=== PATIENT | male | born 1965 | race Caucasian/White ===

== ENCOUNTER 2022-01-08 00:54 | Emergency (ER) | payer OTHER ==
--- OUTSIDE RECORDS SUMMARY | 2022-01-08 00:58 | XMS REPORT | Continuity of Care Document ---
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 PHONE #: [phone] EXAM DATE: 09/14/2020 STATUS: REG ER FAX #: [phone] RAD #: D/C DT PAGE 1 Signed Report Patient Name: SOLANGE GOLDEN Unit No: [id number] EXAMS: CPT CODE: [id number] CT HEAD/BRAIN W/O CONT [id number] <Continued> Orig Print D/T: S: 09/14/2020 (010) REN Camargo NAME: [address] PHYS: [place] [address] : 1965 AGE: 55 SEX: M LOC: B.ERS PHONE #: [phone] EXAM DATE: 09/14/2020 STATUS: REG ER FAX #: [phone] RAD #: D/C DT PAGE 2 Signed ReportBASIC METABOLIC [id number] 00:41:00 Test Item Value Reference Range Interpretation Comments SODIUM (test code = 139.0 mmol/L 133-144 N NA) POTASSIUM (test 3.5 mmol/L 3.5-5.1 N code = K) CHLORIDE (test code 106 mmol/L 95-105 H = CL) CARBON DIOXIDE 26 mmol/L 21-32 N (test code = CO2) ANION GAP (test 7.0 GAP calc 4.0-15.0 N code = GAP) GLUCOSE (test code 150 MG/DL 70-110 H = GLU) BLOOD UREA NITROGEN 13 MG/DL 7-18 N (test code = BUN) CREATININE (test 0.83 MG/DL 0.55-1.30 N Results may be code = CREAT) depressed if p atient is takingN-Acetylc ystei ne (NAC) and Metamizole (Dipyrone). CALCIUM (test code 9.1 MG/DL 8.5-10.1 N = CA) INDEX HEMOLYSIS 1 NORMAL <10 MG See_Comment [Automat ed message] (test code = Index/DL The system [employer]EM[employer]) generated this result transmit meri reference range : 1 NORMAL. The reference range was not used to interpret this result as normal/abnormal . INDEX ICTERIC (test 1 NORMAL <2 MG See_Comment [Auto mated message] code = ICTINDEX) Index/DL The system which generated this result transmit meri reference range : 1 NORMAL. The reference range was not used to interpret this result as normal/abnormal . INDEX LIPEMIA (test 1 NORMAL <50 MG See_Comment [Aut omated message] code = LIPINDEX) Index/DL The system which generated this result transmit meri reference range : 1 NORMAL. The reference range was not used to interpret this result as normal/abnormal . [id number] 00:41:00 Test Item Value Reference Range Interpretation Comments TROPONIN-I < 0.015 NG/ML 0.000-0.045 N INTERPRET WITH CAUTION, THIS (test code = VALUE EXCEEDS T HE LOWER TROPI) LIMITOF LINEARI TY VERIFICATION ES TABLISHED BY THE LABORATORY. An elevated troponin value alone is not sufficient todi agnose a myocardial infa rction. Rather, the patient'sclinic al presentation (h istory, physical exam) and ECGshould be used in conj unction with troponin in the diagnostic evaluation of s uspected myocardial infa rction. Aserial samplin g protocol is recommended to facilitate theidentificati on of temporal change s in troponin levelscharacter istic of AL. [id number] 00:41:00 Test Item Value Reference Range Interpretation Comments ALCOHOL (test code = 177 MG/DL 0-10 H MEDICAL ALCOHOL ALC) RESULTS. SITE W PREPPED WITH BE TADINE. <10 MG/DL ARE CONSIDERED NEGA TIVE. >400 MG/DL MAY BE FATAL.RESULTS F OR MEDICAL USE ONL Y. NOT TO BE USED FOR FORENSIC PURPOSES. PT AND [id number] 00:38:00 Test Item Value Reference Interpretation Comments Range PT PATIENT (test 11.6 SECONDS 9.4-12.5 N code = PTP) INTERNATIONAL 1.02 INR 0.88-1.13 N NORMAL RATIO (test Unit --------- code = INR) ---------Therap eutic range for INR i s dependent upon the situation.2.0-3 .0 Prophylaxis / v enous thromboembolism , Treatment of DV T, Acute myocardial infa rction stroke preventi on, Systemic emboli sm prevention in fibrillation3.0 -4.5 AMI recurrence prev ention, Systemic emboli sm prevention in p rosthetic heart 3.0-5.4 A AL mortality reduc tion THROMBOPLASTIN TIME 24.3 SECONDS 24-37.7 N THERAPEU TIC RANGE FOR PARTIAL (test code UNFRACTIO NATED HEPARIN = = PTT) 50.5-83.6 SEC T his test is not recommen ded to monitor low molecularweight heparin or danaparoid. Order LMWH test COLLECTION THROUGH LINES THAT HAVE BEEN PREVIOUSLY FLUS HEDWITH HEPARIN SHOULD BE AVOIDED DUE TO POSSIBLE HEPARINCONTAMIN ATION BASIC METABOLIC [id number] 00:36:00 Test Item Value Reference Range Interpretation Comments SODIUM (test code = 139.0 mmol/L 133-144 N NA) POTASSIUM (test 3.5 mmol/L 3.5-5.1 N code = K) CHLORIDE (test code 106 mmol/L 95-105 H = CL) CARBON DIOXIDE 26 mmol/L 21-32 N (test code = CO2) ANION GAP (test 7.0 GAP calc 4.0-15.0 N code = GAP) GLUCOSE (test code 150 MG/DL 70-110 H = GLU) BLOOD UREA NITROGEN 13 MG/DL 7-18 N (test code = BUN) CREATININE (test 0.83 MG/DL 0.55-1.30 N Results may be code = CREAT) depressed if p atient is takingN-Acetylc ystei ne (NAC) and Metamizole (Dipyrone). CALCIUM (test code 9.1 MG/DL 8.5-10.1 N = CA) INDEX HEMOLYSIS 1 NORMAL <10 MG See_Comment [Automat ed message] (test code = Index/DL The system [employer]) generated this result transmit meri reference range : 1 NORMAL. The reference range was not used to interpret this result as normal/abnormal . INDEX ICTERIC (test 1 NORMAL <2 MG See_Comment [Auto mated message] code = ICTINDEX) Index/DL The system which generated this result transmit meri reference range : 1 NORMAL. The reference range was not used to interpret this result as normal/abnormal . INDEX LIPEMIA (test 1 NORMAL <50 MG See_Comment [Aut omated message] code = LIPINDEX) Index/DL The system which generated this result transmit meri reference range : 1 NORMAL. The reference range was not used to interpret this result as normal/abnormal . [id number] 00:36:00 Test Item Value Reference Range Interpretation Comments TROPONIN-I (test code = TROPI) NG/ML 0.000-0.045 [id number] 00:36:00 Test Item Value Reference Range Interpretation Comments ALCOHOL (test code = 177 MG/DL 0-10 H MEDICAL ALCOHOL ALC) RESULTS. SITE W PREPPED WITH ROCHELLE BAJWA. <10 MG/DL ARE CONSIDERED NEGA TIVE. >400 MG/DL MAY BE FATAL.RESULTS F OR MEDICAL USE ONL Y. NOT TO BE USED FOR FORENSIC PURPOSES. URINALYSIS [id number] 00:33:00 Test Item Value Reference Range Interpretation Comments UA COLOR (test code COLORLESS YELLOW = COLU) DESCRIPT UA APPEARANCE (test CLEAR DESCRIPT CLEAR code = APPU) UA GLUCOSE DIPSTICK 1,000 mg/dL See_Comment [Automa meri (test code = DGLUU) message] The system which generated this result transmit meri reference range : 0 (NORMAL). The reference range was not used to interpret this result as normal/abnormal . UA BILIRUBIN NEGATIVE (0.0) See_Comment [Automated DIPSTICK (test code mg/dL message] The = BILU) system which generated this result transmit meri reference range : (NEG) 0. The reference range was not used to interpret this result as normal/abnormal . UA KETONE DIPSTICK NEGATIVE (0) See_Comment [Automat ed (test code = KETU) mg/dL message] The system which generated this result transmit meri reference range : (NEG) 0. The reference range was not used to interpret this result as normal/abnormal . UA SPECIFIC GRAVITY 1.001 SG 1.001-1.035 (test code = SGU) UA BLOOD DIPSTICK NEGATIVE (0.00) See_Comment [Autom ated (test code = SORIN) mg/dL message] T system which generated this result transmit meri reference range : 0 (NEG). The reference range was not used to interpret this result as normal/abnormal . UA PH DIPSTICK (test 7.0 pH UNITS 4.6-8.0 code = ASHLEY) UA PROTEIN DIPSTICK NEGATIVE (0) See_Comment [Automa meri (test code = PROU) mg/dL message] The system which generated this result transmit meri reference range : <30 (1+). The reference range was not used to interpret this result as normal/abnormal . UA UROBILINIOGEN NORMAL (0) mg/Dl See_Comment [Autom ated DIPSTICK (test code message] The = URO) system which generated this result transmit meri reference range : <2.0 (1+). The reference range was not used to interpret this result as normal/abnormal . UA NITRITE DIPSTICK NEGATIVE (0) NEG (test code = EDGAR) SCREEN UA LEUKOCYTE NEGATIVE (0) See_Comment [Automated ESTERASE DIPSTICK Leuk/mcL message] T he (test code = LEUU) system wh ich generated this result transmit meri reference range : (NEG) 0. The reference range was not used to interpret this result as normal/abnormal . UA WBC (test code = NONE #WBC/HPF 0-3 WBCU) UA RBC (test code = 0-3 #RBC/HPF 0-3 RBCU) CBC W/AUTO [id number] 00:27:00 Test Item Value Reference Range Interpretation Comments WHITE BLOOD CELL (test code = 6.3 K/mm3 4.1-12.1 N WBC) RED BLOOD CELL (test code = RBC) 4.91 M/mm3 3.8-5.5 N HEMOGLOBIN (test code = HGB) 15.0 G/DL 10.6-15.8 N HEMATOCRIT (test code = HCT) 46.0 % 31.8-47.4 N MEAN CELL VOLUME (test code = 93.7 fL 80.1-101.1 N MCV) MEAN CELL HGB (test code = MCH) 30.5 pg 25.3-35.3 N MEAN CELL HGB CONCETRATION (test 32.6 G/DL 32.7-35.1 L code = MCHC) RED CELL DISTRIBUTION WIDTH 12.1 % 12.2-16.4 L (test code = RDW) RED CELL DISTRIBUTION WIDTH 42.1 fL 35.1-43.9 N (test code = RDW-SD) PLATELET COUNT (test code = PLT) 334 K/mm3 155-337 N MEAN PLATELET VOLUME (test code 9.5 fL 7.6-10.4 N = MPV) GRANULOCYTE % (test code = GR%) 59.5 % 37.8-82.6 N IMMATURE GRANULOCYTE % (test 0.3 % 0.0-2.0 N code = IG%) LYMPHOCYTE % (test code = LY%) 29.1 % 14.1-45.4 N MONOCYTE % (test code = MO%) 6.7 % 2.5-11.7 N EOSINOPHIL % (test code = EO%) 3.8 % 0.0-6.2 N BASOPHIL % (test code = BA%) 0.6 % 0.0-2.6 N NUCLEATED RBC % (test code = 0.0 /100WBC% 0.0-1.0 N NRBC%) GRANULOCYTE # (test code = GR#) 3.73 k/mm3 2.0-13.7 N IMMATURE GRANULOCYTE # (test 0.02 K/mm3 0.00-0.03 N code = IG#) LYMPHOCYTE # (test code = LY#) 1.83 K/mm3 0.6-3.8 N MONOCYTE # (test code = MO#) 0.42 K/mm3 0.11-0.59 N EOSINOPHIL # (test code = EO#) 0.24 K/mm3 0.0-0.4 N BASOPHIL # (test code = BA#) 0.04 K/mm3 0.0-0.1 N NUCLEATED RBC # (test code = 0.00 K/mm3 0.00-0.05 N NRBC#)
[2022-01-08 02:44] LABS: Hematocrit 45.1 % (39.6-49.0); Lymphocytes % 22.7 % (15.3-44.8); MCV 90.8 fL (80-100); MPV 7.6 fL (7.6-11.3); RBC Red Blood Cell Count 4.97 M/uL (4.33-5.43)
[2022-01-08 02:56] LABS: Protime INR 0.99
[2022-01-08 03:10] LABS: ALT/SGPT 31 U/L (12-78); Albumin 3.6 g/dL (3.4-5.0); Alkaline Phosphatase 73 U/L (45-117); BUN Blood Urea Nitrogen 10 mg/dL (7-18); Bicarbonate 28 mmol/L (21-32); Bilirubin Total 0.4 mg/dL (0.2-1.0); Glomerular Filtration Rate 78 ml/min (=/>90); Glucose Level 257 mg/dL (74-106); Phosphorus 2.7 mg/dL (2.5-4.9); Protein, Total 7.3 g/dL (6.4-8.2); Sodium Level 139 mmol/L (136-145)
[2022-01-08 03:11] LABS: AST/SGOT 23 U/L (15-37); Bilirubin Direct < 0.1 mg/dL (0-0.2); Magnesium 1.9 mg/dL (1.8-2.4); Potassium 4.3 mmol/L (3.5-5.1)
[2022-01-08 03:27] LABS: NT PRO-BNP 9 pg/mL (<125); Troponin High Sensitivity 5.6 pg/mL (<58.9)
[2022-01-08 03:51] LABS: Urine Blood Negative (Negative); Urine Glucose 2+ (Negative); Urine Protein 1+ (Negative); Urine Specific Gravity >=1.030 (1.005-1.030)
[2022-01-08] MEDS ORDERED: NA CHLORIDE 0.9% 1,000 ML ONE (04:06)
--- NOTE | 2022-01-08 04:52 | EDPHYS ---
Physician Documentation [facility] Name: Mitul Espino Jr Age: 57 yrs Sex: Male : 1965 Arrival Date: 01/08/2022 Time: 00:56 Bed 26 Private MD: ED Physician Pierce Grider HPI: 01/08 02:04 This 57 yrs old Male presents to ER via Ambulatory with complaints of Shortness Of mh7 Breath, Numbness Of Hand, Low Blood Sugar. 02:04 The patient or guardian reports hypoglycemia, that was potentially precipitated by no mh7 particular event, with the patient's symptoms witnessed by family. Onset: The symptoms/episode began/occurred yesterday. Associated signs and symptoms: Pertinent positives: SOB, numbness/tingling , Pertinent negatives: anorexia, constipation, decreased urine output, diaphoresis, diarrhea, dry skin, hair loss, ketones in urine, nausea, polydipsia, polyphagia, polyuria, seizure activity, skin flushing, urinary incontinence, vomiting. Current symptoms: In the emergency department the patient's symptoms have improved, moderately. Historical: - Allergies: 01:23 No Known Allergies; bb - PMHx: 01:23 Diabetes mellitus; Hypothyroidism; bb - Immunization history:: Client reports receiving the Yvan \\T\\ Yvan single-dose vaccine. - Social history:: Smoking status: Patient reports the use of cigarette tobacco products, cigars. ROS: 02:04 Constitutional: Negative for fever, chills, and weight loss, Eyes: Negative for injury, mh7 pain, redness, and discharge, ENT: Negative for injury, pain, and discharge, Neck: Negative for injury, pain, and swelling, Cardiovascular: Negative for chest pain, palpitations, and edema, Abdomen/GI: Negative for abdominal pain, nausea, vomiting, diarrhea, and constipation, Back: Negative for injury and pain, : Negative for injury, bleeding, discharge, and swelling, MS/Extremity: Negative for injury and deformity, Skin: Negative for injury, rash, and discoloration, Psych: Negative for depression, anxiety, suicide ideation, homicidal ideation, and hallucinations, Allergy/Immunology: Negative for hives, rash, and allergies, Endocrine: Negative for neck swelling, polydipsia, polyuria, polyphagia, and marked weight changes, Hematologic/Lymphatic: Negative for swollen nodes, abnormal bleeding, and unusual bruising. Exam: 02:04 Constitutional: This is a well developed, well nourished patient who is awake, alert, mh7 and in no acute distress. Head/Face: Normocephalic, atraumatic. Eyes: Pupils equal round and reactive to light, extra-ocular motions intact. Lids and lashes normal. Conjunctiva and sclera are non-icteric and not injected. Cornea within normal limits. Periorbital areas with no swelling, redness, or edema. Neck: Trachea midline, no thyromegaly or masses palpated, and no cervical lymphadenopathy. Supple, full range of motion without nuchal rigidity, or vertebral point tenderness. No Meningismus. Chest/axilla: Normal chest wall appearance and motion. Nontender with no deformity. No lesions are appreciated. Cardiovascular: Regular rate and rhythm with a normal S1 and S2. No gallops, murmurs, or rubs. Normal PMI, no JVD. No pulse deficits. Respiratory: Lungs have equal breath sounds bilaterally, clear to auscultation and percussion. No rales, rhonchi or wheezes noted. No increased work of breathing, no retractions or nasal flaring. Abdomen/GI: Soft, non-tender, with normal bowel sounds. No distension or tympany. No guarding or rebound. No evidence of tenderness throughout. Back: No spinal tenderness. No costovertebral tenderness. Full range of motion. Skin: Warm, dry with normal turgor. Normal color with no rashes, no lesions, and no evidence of cellulitis. MS/ Extremity: Pulses equal, no cyanosis. Neurovascular intact. Full, normal range of motion. Neuro: Awake and alert, GCS 15, oriented to person, place, time, and situation. Cranial nerves II-XII grossly intact. Motor strength 5/5 in all extremities. Sensory grossly intact. Cerebellar exam normal. Normal gait. Psych: Awake, alert, with orientation to person, place and time. Behavior, mood, and affect are within normal limits. Vital Signs: 01:21 BP 130 / 84; Pulse 112; Resp 18 S; Temp 97.9(O); Pulse Ox 95% on R/A; Weight 117.48 kg bb (R); Height 6 ft. 4 in. (193.04 cm) (R); 04:47 BP 162 / 103; Pulse 89; Resp 19; Pulse Ox 100% ; ke1 01:21 Body Mass Index 31.53 (117.48 kg, 193.04 cm) bb MDM: 04:49 Differential diagnosis: diabetes insipidus, hyperglycemia, hypoglycemic episode. Data [facility] reviewed: vital signs, nurses notes, lab test result(s), cardiac enzymes, CBC, electrolytes, Flu: positive urinalysis, EKG, radiologic studies, plain films. Data interpreted: Pulse oximetry: on room air is 100 %. Interpretation: normal. Counseling: I had a detailed discussion with the patient and/or guardian regarding: the historical points, exam findings, and any diagnostic results supporting the discharge/admit diagnosis, the presence of at least one elevated blood pressure reading (>120/80) during this emergency department visit, lab results, radiology results, the need for outpatient follow up, to return to the emergency department if symptoms worsen or persist or if there are any questions or concerns that arise at home. Response to treatment: the patient's symptoms have resolved after treatment, the patient's blood pressure is in an acceptable range, mental status has returned to baseline, the patient no longer shows bradycardia, the patient is not short of breath, the patient is not tachycardic, the patient's pain is gone, the patient's temperature has normalized, the patient is now symptom free, patient is well hydrated. 04:[address] [facility] 01/08 01:54 Order name: Basic Metabolic Panel; Complete Time: 03:45 [facility] 01/08 01:54 Order name: CBC with Diff; Complete Time: 02:48 [facility] 01/08 01:54 Order name: D-Dimer; Complete Time: 03:45 [facility] 01/08 01:54 Order name: LFT's; Complete Time: 03:45 [facility] 01/08 01:54 Order name: Magnesium; Complete Time: 03:45 [facility] 01/08 01:54 Order name: NT PRO-BNP; Complete Time: 03:45 [facility] 01/08 01:54 Order name: PT-INR; Complete Time: 03:45 [facility] 01/08 01:54 Order name: Troponin HS; Complete Time: 03:45 [facility] 01/08 01:54 Order name: XRAY Chest (1 view) [facility] 01/08 01:55 Order name: COVID-19 SARS RT PCR (Document "Date of Onset" if Symptomatic); Complete [facility] Time: 03:45 01/08 01:55 Order name: Influenza Screen (a \\T\\ B); Complete Time: 03:45 [facility] 01/08 02:41 Order name: Phosphorus; Complete Time: 03:45 [facility] 01/08 03:51 Order name: Urine Dipstick-Ancillary; Complete Time: 03:52 [facility] 01/08 01:54 Order name: EKG; Complete Time: 01:59 [facility] 01/08 01:54 Order name: Cardiac monitoring; Complete Time: 03:03 [facility] 01/08 01:54 Order name: EKG - Nurse/Tech; Complete Time: 02:32 [facility] 01/08 01:54 Order name: IV Saline Lock; Complete Time: 02:32 [facility] 01/08 01:54 Order name: Labs collected and sent; Complete Time: 02:32 [facility] 01/08 01:54 Order name: O2 Per Protocol; Complete Time: 04:38 [facility] 01/08 01:54 Order name: O2 Sat Monitoring; Complete Time: 02:43 [facility] 01/08 01:54 Order name: Urine Dipstick-Ancillary (obtain specimen); Complete Time: 03:56 [facility] Administered Medications: 04:00 Drug: NS 0.9% 1000 ml Route: IV; Rate: 1000 ml; Site: right antecubital; ke1 05:00 Follow up: IV Status: Completed infusion ke1 Disposition Summary: 01/08/22 04:51 Discharge Ordered Location: Home [facility] Problem: new [facility] Symptoms: have improved [facility] Condition: Stable [facility] Diagnosis - Influenza B [facility] - Type 2 diabetes mellitus with hypoglycemia without coma - resolved [facility] Followup: [facility] - With: Private Physician - When: 1 - 2 days - Reason: Worsening of condition, Recheck today's complaints, Continuance of care, Re-evaluation by your physician Discharge Instructions: - Discharge Summary Sheet [facility] - Influenza, Adult, Gcku-xs-Iqcy [facility] - Hypoglycemia, Isgf-pr-Gfyd [facility] Forms: - Medication Reconciliation Form [facility] - Thank You Letter [facility] - Antibiotic Education [facility] - Prescription Opioid Use [facility] Prescriptions: - Tamiflu 75 mg Oral Capsule - take 1 tablet by ORAL route every 12 hours for 5 days; 10 tablet; Refills: 0, [facility] Product Selection Permitted Signatures: Dispatcher [employer] EDMS Linh Collins, RN RN bb Beau Rodriguez, SKID MAN-C SKID MAN-Cla1 Pierce Grider MD MD 7 Pricila Campos RN RN ke1 Corrections: (The following items were deleted from the chart) 02:40 01:59 PHOSPHORUS+C.LAB.BRZ ordered. EDMS EDMS
--- NOTE | 2022-01-08 04:52 | ER ---
Nurse's Notes [facility] Name: Mitul Espino Jr Age: 57 yrs Sex: Male : 1965 Arrival Date: 01/08/2022 Time: 00:56 Bed 26 Private MD: Diagnosis: Influenza B;Type 2 diabetes mellitus with hypoglycemia without coma-resolved Presentation: 01/08 01:21 Chief complaint: Patient states: he is diabetic and had a sudden drop in blood sugar bb last night and has left arm tingling and numbness. Coronavirus screen: At this time, the client does not indicate any symptoms associated with coronavirus-19. Ebola Screen: No symptoms or risks identified at this time. Initial Sepsis Screen: Does the patient meet any 2 criteria? No. Patient's initial sepsis screen is negative. Does the patient have a suspected source of infection? No. Patient's initial sepsis screen is negative. Risk Assessment: Do you want to hurt yourself or someone else? Patient reports no desire to harm self or others. Onset of symptoms was January 08, 2022. 01:21 Method Of Arrival: Ambulatory bb 01:21 Acuity: JOSE 2 bb Triage Assessment: 04:01 General: Appears in no apparent distress. Behavior is appropriate for age. Respiratory: ke1 Reports shortness of breath at rest Onset: The symptoms/episode began/occurred the patient has mild shortness of breath. Historical: - Allergies: 01:23 No Known Allergies; bb - PMHx: 01:23 Diabetes mellitus; Hypothyroidism; bb - Immunization history:: Client reports receiving the Yvan \\T\\ Yvan single-dose vaccine. - Social history:: Smoking status: Patient reports the use of cigarette tobacco products, cigars. Screenin:01 Abuse screen: Denies threats or abuse. Nutritional screening: No deficits noted. ke1 Tuberculosis screening: No symptoms or risk factors identified. Fall Risk None identified. Assessment: 04:01 Pain: Denies pain. Cardiovascular: Rhythm is sinus tachycardia. Respiratory: Airway is ke1 patent Respiratory effort is even, unlabored, Breath sounds are clear bilaterally. Vital Signs: 01:21 BP 130 / 84; Pulse 112; Resp 18 S; Temp 97.9(O); Pulse Ox 95% on R/A; Weight 117.48 kg bb (R); Height 6 ft. 4 in. (193.04 cm) (R); 04:47 BP 162 / 103; Pulse 89; Resp 19; Pulse Ox 100% ; ke1 01:21 Body Mass Index 31.53 (117.48 kg, 193.04 cm) bb ED Course: 00:56 Patient arrived in ED. bp1 01:23 Triage completed. bb 01:23 Arm band placed on Patient placed in an exam room, on a stretcher, on pulse oximetry. bb Family accompanied patient. 01:32 Pierce Grider MD is Attending Physician. [facility] 01:37 Pricila Campos, SUKI is Primary Nurse. ke1 02:10 XRAY Chest (1 view) In Process Unspecified. EDMS 02:32 Influenza Screen (a \\T\\ B) Sent. oe 02:32 COVID-19 SARS RT PCR (Document "Date of Onset" if Symptomatic) Sent. oe 02:32 Inserted saline lock: 20 gauge in right antecubital area, using aseptic technique. oe Blood collected. 04:02 Bed in low position. Call light in reach. ke1 05:10 No provider procedures requiring assistance completed. IV discontinued. ke1 Administered Medications: 04:00 Drug: NS 0.9% 1000 ml Route: IV; Rate: 1000 ml; Site: right antecubital; ke1 05:00 Follow up: IV Status: Completed infusion ke1 Medication: 05:10 VIS not applicable for this client. ke1 Outcome: 04:51 Discharge ordered by . [facility] 05:10 Discharged to home ambulatory. ke1 05:10 Condition: good 05:10 Discharge instructions given to patient. 05:11 Patient left the ED. ke1 Signatures: Dispatcher [employer] EDAZ Linh Collins, RN RN bb Sigifredo Smith Brittany bp1 Pierce Grider MD MD [facility] Pricila Campos, SUKI COHN ke
[2022-01-08 05:16] VITALS: TEMP 97.9
[2022-01-08 05:18] VITALS: BP 162/103; O2SAT 100
--- NOTE | 2022-01-08 13:30 | RAD REPORT ---
EXAM DESCRIPTION: Chest Radiography COMPARISON: None. CLINICAL HISTORY: RUST MAIN SOB FINDINGS: A single AP view of the chest demonstrates a normal cardiomediastinal silhouette. No pneumothorax or pleural effusion. No consolidation or pulmonary edema. Osseous structures are intact. IMPRESSION: No acute chest process. Electronically signed by: Arnold Choi MD 01/08/2022 3:08 AM CDT Due to temporary technical issues with the PACS/Fluency reporting system, reports are being signed by the in house radiologists without review as a courtesy to insure prompt reporting. The interpreting radiologist is fully responsible for the content of the report.
--- NOTE | 2022-01-09 07:56 | EKG ---
Test Date: 2022-01-08 Test Time: 02:10:04 Software Support Analyst: GIO MEASUREMENT RESULTS: Intervals: Rate: 98 ND: 180 QRSD: 84 QT: 348 QTc: 444 Jarratt: P: 55 ND: 180 QRS: 76 T: 52 INTERPRETIVE STATEMENTS: Normal sinus rhythm Normal ECG No previous ECG available for comparison Electronically Signed On 01-09-22 07:54:36 CDT by Fabian Chino
== END 2022-01-08 05:11 | disposition home or self-care (01) ==
LOC: ER 00:54
DX: J10.1 Influenza due to other identified influenza virus with other respiratory manifestations (principal); F17.290 Nicotine dependence, other tobacco product, uncomplicated; Z20.822 Contact with and (suspected) exposure to COVID-19
CPT/HCPCS: 85025; 80048; 36415; 83735; 84100; 85610; 85379; 80076; 81003; 84484; 83880; 87804 ×2; 71045; U0003; J7030; 93005